=== PATIENT | female | born 1985 | race Caucasian/White ===

== ENCOUNTER 2018-11-24 09:11 | Emergency (ER) | payer MEDICAID ==
[~2018-11-24] VITALS: Ht 157.5 cm; Wt 65.0 kg
[2018-11-24] MEDS ORDERED: KETOROLAC 30MG/ML VIAL IM ONE (11:00)
[2018-11-24 12:57] LABS: CLARITY URINE TURBID (CLEAR); COLOR URINE YELLOW (YELLOW); KETONES URINE NEGATIVE (NEGATIVE); LEUKOCYTE ESTERASE URINE NEGATIVE (NEGATIVE); NITRITE URINE NEGATIVE (NEGATIVE); OCCULT BLOOD URINE NEGATIVE (NEGATIVE); PROTEIN URINE NEGATIVE (NEGATIVE); SPECIFIC GRAVITY URINE 1.023 (1.005-1.030); UROBILINOGEN URINE 0.2 E.U./dL (0.2-1.0)
[2018-11-24] MEDS ORDERED: HYDROCODONE/ACETAMINOPHEN 5/325MG TABLET PO ONE (14:00)
[2018-11-24 14:40] VITALS: BP 110/69
== END 2018-11-24 14:50 | disposition home or self-care (01) ==
LOC: ER 09:11
DX: M25.552 Pain in left hip (principal)
CPT/HCPCS: 73502; 81003; 81025; 96372; 99284; J1885